=== PATIENT | male | born 1995 | race Caucasian/White ===

== ENCOUNTER 2019-05-20 17:50 | Emergency (ER) | payer SELFPAY ==
[~2019-05-20] VITALS: Ht 172.7 cm; Wt 95.5 kg
[2019-05-20 17:55] VITALS: BP 146/67; TEMP 98.5
[2019-05-20] MEDS ORDERED: ZOFRAN ODT4 MG PO (19:01)
[2019-05-20 19:26] VITALS: PULSE 83
== END 2019-05-20 19:24 | disposition home or self-care (01) ==
LOC: COL.ER 17:50
DX: S06.0X0A Concussion without loss of consciousness, initial encounter (principal); R40.2412 Glasgow coma scale score 13-15, at arrival to emergency department; Z90.89 Acquired absence of other organs; V49.40XA Driver injured in collision with unspecified motor vehicles in traffic accident, initial encounter

== ENCOUNTER 2019-11-27 02:48 | Observation (INO) | payer SELFPAY ==
[2019-11-27] VITALS (12 sets, daily range): BP systolic 103–132; BP diastolic 47–77; PULSE 55–88; TEMP 97.7–98.8
[~2019-11-27] VITALS: Ht 177.8 cm; Wt 91.9 kg
[~2019-11-27 02:48] MED LIST: ZOFRAN ODT4 MG PO
[2019-11-27 04:06] LABS: BASO # 0.1 (0.0-0.2); BASO % 0.4 % (0.0-2.0); EOS # 0.1 (0.0-0.7); EOS % 0.7 % (0-4.0); GRAN # 11.1 (1.4-6.5); GRAN % 78.5 % (42.2-75.2); HEMATOCRIT 43.9 % (42.0-52.0); HEMOGLOBIN 15.2 g/dl (13.5-18.0); LYMPH # 1.9 (1.2-3.4); LYMPH % 13.8 % (20.0-51.0); MEAN CELL VOLUME 84 fl (80.0-100.0); MEAN CORPUSCULAR HEMOGLOBIN 29 pg (27.0-31.0); MEAN CORPUSCULAR HGB CONC 35 g/dl (33.0-37.0); MONO # 0.9 (0.1-0.6); MONO % 6.2 % (1.7-9.3); PLATELET COUNT 344 K/mm3 (130-400); RED BLOOD COUNT 5.22 M/mm3 (4.20-5.60)
[2019-11-27 04:13] LABS: ALBUMIN 4.6 gm/dL (3.5-5.0); BILIRUBIN,TOTAL 0.8 mg/dL (0.0-1.0); CALCIUM 9.3 mg/dL (8.4-10.2); CREATININE, serum 1.01 (0.66-1.25); POTASSIUM 4.1 mmol/L (3.4-5.0); TOTAL PROTEIN 7.9 gm/dL (6.4-8.2)
[2019-11-27 04:44] LABS: COLLECTION METHOD CLEAN CATCH
[2019-11-27 05:16] LABS: MUCOUS Present /lpf; PH 5 (5-8); SQUAMOUS EPITHELIAL None Seen /hpf; URINE APPEARANCE Clear; URINE BACTERIA None Seen /hpf; URINE BILIRUBIN Negative (NEGATIVE); URINE BLOOD 1+ (NEGATIVE); URINE COLOR Yellow; URINE GLUCOSE Negative (NEGATIVE); URINE KETONE 1+ (NEGATIVE); URINE LEUKOCYTE ESTERASE Negative (NEGATIVE); URINE NITRATE Negative (NEGATIVE); URINE PROTEIN(semi-quant) Negative (NEGATIVE); URINE RBC 0-2 /hpf; URINE UROBILINOGEN >=4.0 mg/dL (NEGATIVE)
--- NOTE | 2019-11-27 09:40 | NUR ---
PATIENT ARRIVED TO ROOM 342 VIA CART FROM ED. PATIENT ORIENTED TO ROOM.
[2019-11-27] MEDS ORDERED: RITALIN SR20 MG PO (09:56)
[2019-11-27] MEDS ORDERED: RITALIN10 MG PO (09:57)
[2019-11-27] MEDS ORDERED: CONCERTA54 MG PO (09:58)
--- NOTE | 2019-11-27 10:39 | NUR ---
PATIENT ADMISSION ASSESSMENT COMPLETE. SEE ASSESSMENT B.
--- NOTE | 2019-11-27 11:01 | NUR ---
PATIENT GIVEN PRN IV PAIN MEDICATION FOR PAIN RATED A 6/10 ON A 0-10 SCALE. BACK PAIN IS SHARP IN NATURE. WILL CONTINUE TO MONITOR.
--- NOTE | 2019-11-27 11:40 | NUR ---
PRE-OP MEDICATIONS GIVEN. LR TO GRAVITY FLOW TUBING INFUSING TO LEFT AC. CONSENT FORM SIGNED AND ON PATIENT CHART.
--- NOTE | 2019-11-27 12:00 | NUR ---
PATIENT TAKEN TO PERIOP VIA BED. WILL WAIT FOR PATIENT RETURN TO ROOM 343 POST-OP.
--- NOTE | 2019-11-27 13:13 | NUR ---
Plan to return home with his mother as care support Viktoriyara Chavis . Patient reports that he uses [facility] for medications but denies having a PCP. Patient reports that he has insurance and will need to bring it up. Client reports that he was in to much pain during admission to go over financial information. Client reports that his mother will provided transportation. Client denies any use of DME and does not use any Home health services.
--- NOTE | 2019-11-27 13:55 | NUR ---
PATIENT ARRIVED BACK TO ROOM 343 VIA BED FROM PACU. PATIENT IS SEDATED BUT AROUSES EASILY. POST-OP VSS. ABDOMINAL LAP SITES X3 DRESSED WITH BANDAIDS AND ARE CD&I. CALL LIGHT WITHIN REACH. NO NEEDS AT THIS TIME.
--- NOTE | 2019-11-27 18:35 | NUR ---
DR. CASTILLO CALLED AND NOTIFIED THAT THE PATIENT IS AWAKE, EATING, DRINKING AND VOIDING WITHOUT DIFFICULTY. PATIENTS PAIN IS WELL CONTROLLED WITH ORAL PAIN MEDICATION.
[2019-11-27] MEDS ORDERED: NORCO 325 MG-51 TAB PO (18:50)
--- NOTE | 2019-11-27 19:07 | NUR ---
REPORT GIVEN TO ELIZABETH WALTER.
--- NOTE | 2019-11-27 19:40 | NUR ---
Discharge instructions given both verbal and handwritten. Discussed F/U appt, home medications, take home Ellis pack and s/s of infection. Verbalizes understanding/denies questions/concerns. INT to left AC DCd-cath intact. No s/s of infection noted. Instructed to call when ride arrives to be escorted down to ED. Call light in reach. Will monitor.
--- NOTE | 2019-11-27 19:45 | NUR ---
Debo one tab per dr order for pain rated 5/10 to right side of abdomen/incisions. Described as burning/ache. Will monitor.
== END 2019-11-27 20:40 | disposition home or self-care (01) ==
LOC: COL.ER 02:48 → SURG 08:09 → COL.ER 08:09 → SURG 08:09
PROVIDERS: Emergency Medicine; ADMIT Surgery
DX: K81.0 Acute cholecystitis (principal); F98.8 Other specified behavioral and emotional disorders with onset usually occurring in childhood and adolescence
CPT/HCPCS: G0378; J0690; J0696; J1100; J1170; J1885; J2270; J2310; J2405; J2550; J2704; J3010; J7030; J7120; Q9967